=== PATIENT | female | born 1960 | race Caucasian/White ===

== ENCOUNTER 2024-06-16 04:02 | Emergency (ER) | payer OTHER ==
[2024-06-16 04:17] VITALS: BP 110/66; PULSE 90; RESP 20; TEMP 98.1; BMI 25.7
[2024-06-16] MEDS ORDERED: MAG HYDROX/AL HYDROX/SIMETH 30 ML UNIT-DOSE CUP ONE (05:23)
[2024-06-16] MEDS ORDERED: FAMOTIDINE 20 MG/50 ML IVPB 20 MG/50 ML MG IVPB ONE (05:23)
[2024-06-16] MEDS: FAMOTIDINE 20 MG/50 ML IVPB 20 MG/50 ML MG IVPB ONE (05:40)
[2024-06-16] MEDS: SODIUM CHLORIDE 0.9% 500 ML INFUS.BAG IV ONE (05:40)
[2024-06-16] MEDS: MAG HYDROX/AL HYDROX/SIMETH 30 ML UNIT-DOSE CUP PO ONE (05:40)
[2024-06-16 05:57] LABS: BASO % 0.3 % (0-2.0); EOS % 0.6 % (0-4.5); HEMATOCRIT 43.1 % (32.4-45.2); HEMOGLOBIN 14.7 GM/dL (10.7-15.3); LYMPH % 9.8 % (8-40); MCH 31.3 pg (25.7-33.7); MCHC 34.2 g/dl (32.0-36.0); MEAN CELL VOLUME 91.6 fl (80-96); MEAN PLT VOLUME 8.7 fl (7.5-11.1); MONO % 7.2 % (3.8-10.2); NEUT % 82.1 % (42.8-82.8); PLATELET COUNT 230 10^3/uL (134-434); RDW 14.1 % (11.6-15.6); WHITE BLOOD COUNT 8.6 K/mm3 (4.0-10.0)
[2024-06-16 06:20] LABS: POTASSIUM 4.2 mmol/L (3.5-5.1)
[2024-06-16] MEDS ORDERED: ACETAMINOPHEN INJECTION 100 ML ONE (06:22)
[2024-06-16 06:23] LABS: BLOOD UREA NITROGEN 14.7 mg/dL (7-18)
[2024-06-16 06:24] LABS: CALCIUM 9.7 mg/dL (8.5-10.1)
[2024-06-16 06:25] LABS: ALBUMIN 3.8 g/dl (3.4-5.0); MAGNESIUM 1.7 mg/dL (1.8-2.4)
[2024-06-16 06:27] LABS: CREATININE 0.5 mg/dL (0.55-1.3)
[2024-06-16 06:28] LABS: BILIRUBIN,TOTAL 0.6 mg/dL (0.2-1); TOT PROT 6.9 g/dl (6.4-8.2)
[2024-06-16] MEDS: ACETAMINOPHEN 1000 MG/100 ML BAG IVPB ONE (06:33)
== END 2024-06-16 07:39 | disposition home or self-care (01) ==
LOC: JER 04:02
PROC: 3E033GC Introduction of Other Therapeutic Substance into Peripheral Vein, Percutaneous Approach (ICD-10-PCS; principal; 2024-06-16)
PROC: 3E033NZ Introduction of Analgesics, Hypnotics, Sedatives into Peripheral Vein, Percutaneous Approach (ICD-10-PCS; 2024-06-16)
DX: R19.7 Diarrhea, unspecified (principal); R63.0 Anorexia; R11.0 Nausea; R51.9 Headache, unspecified; R10.13 Epigastric pain; R10.30 Lower abdominal pain, unspecified
CPT/HCPCS: 36415; 80053; 83735; 85025; 99283-25; J0131

== ENCOUNTER 2025-03-29 18:20 | Emergency (ER) | payer OTHER ==
[2025-03-29 18:36] VITALS: BP 121/71; PULSE 75; RESP 18; TEMP 98.1; BMI 25.7
[2025-03-29] MEDS: LORATADINE 10 MG TABLET PO ONE (19:37)
[2025-03-29] MEDS ORDERED: LORATADINE 10 MG TABLET ONE (19:37)
== END 2025-03-29 20:02 | disposition home or self-care (01) ==
LOC: JERFT 18:20
DX: H65.02 Acute serous otitis media, left ear (principal)
CPT/HCPCS: 99283-25